=== PATIENT | male | born 1945 | race Caucasian/White ===

== ENCOUNTER 2016-11-18 08:45 | Day surgery (SDC) | payer OTHER, MEDICARE ==
[~2016-11-18] VITALS: Ht 182.9 cm; Wt 111.0 kg
[~2016-11-18 08:45] MED LIST: ACETAMINOPHEN 500 MG TAB (TYLENOL) PO PRN; CHONDROITIN/HYALURONATE (DISCOVISC) 1 ML SYR IO ONE; PHENYLEPHRINE/KETOROLAC 4 ML VIAL IO ONE; SODIUM CHLORIDE FLUSH 3 ML SYR IV PRN; TETRACAINE 0.5% OPHTHALMIC SOLUTION 4 ML BTL ONE; diphenhydrAMINE 50 MG/ML INJ (BENADRYL) IV PRN
[2016-11-18 08:54] VITALS: BP 139/85
[2016-11-18] MEDS: LIDOCAINE 3.5% OPHTH GEL (AKTEN) 1 ML BTL OD SCH ×4 (09:13→09:44)
[2016-11-18] MEDS: HOME MEDICATION OD SCH ×3 (09:28→09:44)
[2016-11-18] MEDS: CATARACT PRE-OP EYE DROPS 0.5ML SYRINGE OD SCH ×3 (09:28→09:44)
[2016-11-18] MEDS ORDERED: MIDAZOLAM 2 MG/2 ML (VERSED) VIAL ONE (09:42)
[2016-11-18 10:44] VITALS: BP 117/66
== END 2016-11-18 11:14 | disposition home or self-care (01) ==
LOC: ASC 08:45
PROVIDERS: ATTEND Ophthalmology
DX: H25.11 Age-related nuclear cataract, right eye (principal); I10 Essential (primary) hypertension; M10.9 Gout, unspecified
CPT/HCPCS: 36415; 66984; 84132; C9447; J2250; V2632

== ENCOUNTER 2016-12-30 07:48 | Day surgery (SDC) | payer OTHER, MEDICARE ==
[~2016-12-30] VITALS: Ht 182.9 cm; Wt 109.1 kg
[~2016-12-30 07:48] MED LIST changes: +ALLO300T2 PO; +ATEN-155 PO; +BENA10TA PO; +EPIN0.3P2 IM; +INDA2.5T2 PO; +METH4TAB27 PO; +OMEP20CA12 PO; +PRED20TA PO; +SILD100T PO
--- OUTSIDE RECORDS SUMMARY | 2016-12-30 07:52 | XMS REPORT | Continuity of Care Document ---
Author Author [facility] Address Unknown Phone Unavailable Allergies Active Description Code Type Severity Reaction Onset Reported/Identified Relationship to Patient Clinical Status Yes Somanex Somanex Moderate tongue swelling 07/12/2014 Medications Problems Date Dx Coded Attending Type Code Diagnosis Diagnosed By 10/07/2013 MICHAEL PERALTA, SANJEEV Purcell Ot 786.50 CHEST PAIN NOS 10/07/2013 SANJEEV RODRIGUEZ MD Ot 786.52 PAINFUL RESPIRATION 07/12/2014 ANNE MARIE PERALTA, MAGALY Watson Ot 995.1 ANGIONEUROTIC EDEMA 07/12/2014 MAGALY KENNEY MD Ot E928.9 ACCIDENT NOS 11/23/2014 Ot 989.5 TOXIC EFFECT VENOM 11/23/2014 Ot E849.0 ACCIDENT IN HOME 11/23/2014 Ot E905.3 HORNET/WASP/BEE STING 11/26/2016 ARGENIS BUTTS MD, V Ot H25.11 AGE-RELATED NUCLEAR CATARACT, RIGHT EYE 11/26/2016 BECKIE PERALTA, ARGENIS Yadav Ot I10 ESSENTIAL (PRIMARY) HYPERTENSION 11/26/2016 ARGENIS BUTTS MD, V Ot M10.9 GOUT, UNSPECIFIED 11/28/2016 BECKIE PERALTA, ARGENIS Yadav Ot H25.11 AGE-RELATED NUCLEAR CATARACT, RIGHT EYE 11/28/2016 BECKIE PERALTA, ARGENIS Yadav Ot I10 ESSENTIAL (PRIMARY) HYPERTENSION 11/28/2016 BECKIE PERALTA, ARGENIS Yadav Ot M10.9 GOUT, UNSPECIFIED Procedures Results Test Result Range Lactate dehydrogenase (LDH) measurement - 11/18/16 09:07 Sodium measurement 3.9 3.5-5.1 Encounters ACCT No. Visit Date/Time Discharge Status Pt. Type Provider Facility Loc./Unit Complaint [id number] 11/18/2016 08:45:00 2016 11:14:00 DIS Outpatient BECKIE PERALTA, ARGENIS [facility] RIGHT CATARACT [id number] 07/12/2014 01:27:00 2013 04:39:00 DIS Emergency ANNE MARIE PERALTA, [facility] ED HSB [id number] 10/07/2013 08:50:00 2013 11:18:00 DIS Emergency MICHAEL PERALTA, [facility] ED HSB [id number] 11/23/2014 20:55:00 Document Registration
[2016-12-30 08:03] VITALS: BP 165/81
[2016-12-30] MEDS: LIDOCAINE 3.5% OPHTH GEL (AKTEN) 1 ML BTL OS SCH ×3 (08:52→09:14)
[2016-12-30] MEDS: CATARACT PRE-OP EYE DROPS 0.5ML SYRINGE OS SCH ×2 (09:03→09:14)
[2016-12-30] MEDS: HOME MEDICATION OS SCH ×2 (09:04→09:14)
[2016-12-30] MEDS ORDERED: MIDAZOLAM 2 MG/2 ML (VERSED) VIAL ONE (09:48)
[2016-12-30] MEDS ORDERED: CHONDROITIN/HYALURONATE (VISCOAT) 0.5 ML SYR IO ONE (09:59)
[2016-12-30 10:24] VITALS: BP 143/77
== END 2016-12-30 10:41 | disposition home or self-care (01) ==
LOC: ASC 07:48
PROVIDERS: ATTEND Ophthalmology
DX: H25.12 Age-related nuclear cataract, left eye (principal); I10 Essential (primary) hypertension; M10.9 Gout, unspecified
CPT/HCPCS: 36415; 66984; 84132; C9447; J2250; V2632